=== PATIENT | female | born 1965 | race Caucasian/White ===

== ENCOUNTER 2017-04-01 06:38 | Day surgery (SDC) | payer BC ==
[2017-04-01] MEDS ORDERED: Lactated Ringers 1,000 ML IV SCH (06:45)
[2017-04-01] MEDS ORDERED: Propofol 200 MG/20 ML SDV ONE (07:07)
[2017-04-01] MEDS ORDERED: fentaNYL 100 MCG/2 ML SDV ONE (07:08)
[2017-04-01] MEDS ORDERED: Midazolam 1 MG/ML 2 ML SDV ONE (07:08)
--- NOTE | 2017-04-01 14:42 | OR ---
DATE OF PROCEDURE: 04/01/2017 PREOPERATIVE DIAGNOSIS: Colon cancer screening. POSTOPERATIVE DIAGNOSIS: Unremarkable colonoscopy. PROCEDURE: Colonoscopy to the cecum. SURGEON: Juan Rodgers MD. ANESTHESIA: IV anesthesia with monitored anesthesia care. INDICATION: This 51-year-old white female is referred for a colonoscopy for colon cancer screening. She has never had a colonoscopic exam. I counseled her for the procedure including the risks and alternatives, and she gave her informed consent to proceed. DESCRIPTION OF PROCEDURE: The patient was placed in the left lateral decubitus position. IV anesthesia was administered by the Anesthesia Service. Time-out was held. A rectal exam was performed, which was unremarkable. The flexible video Olympus colonoscope was introduced through her anus, up her rectum, and out her colon all the way to the cecum. Once the cecum was reached, the scope was slowly withdrawn, examining the mucosa throughout. No mucosal abnormalities were noted. The scope was retroflexed in the rectum with the distal rectum appearing unremarkable. The scope was straightened and removed. She tolerated the procedure well. Juan Rodgers MD /[id number] MTDD
== END 2017-04-01 09:25 | disposition home or self-care (01) ==
LOC: JP.SDS 06:38
PROVIDERS: ATTEND Surgery
DX: Z12.11 Encounter for screening for malignant neoplasm of colon (principal); D68.51 Activated protein C resistance; E78.00 Pure hypercholesterolemia, unspecified; Z79.01 Long term (current) use of anticoagulants; Z79.899 Other long term (current) drug therapy
CPT/HCPCS: 45378; J2250; J2704; J3010; J7120

== ENCOUNTER 2019-06-28 16:38 | Emergency (ER) | payer OTHER ==
--- NOTE | 2019-06-28 17:20 | EDM.PDOC ---
ED HPI GENERAL MEDICAL PROBLEM - General Chief Complaint: General Stated Complaint: FEVER, HEADACHE, BODY ACHES Time Seen by Provider: 06/28/19 17:14 Source of Information: Reports: Patient History Limitations: Reports: No Limitations - History of Present Illness INITIAL COMMENTS - FREE TEXT/NARRATIVE: 53 years old female patient presented with a chief complaint of congested cough , nasal congestion and sinus pressure, chills started last night. Feeling hot and cold. Did not check her temperature. Denies any chest pain or shortness breath. Also complaining of generalized body aches and headache. Denies any abdominal pain diarrhea or constipation. Denies any urinary symptom. Recently traveled to [place]. She is not aware of any sick contact. 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 - Related Data Allergies Allergy/AdvReac Type Severity Reaction Status Date / Time No Known Allergies Allergy Verified 06/28/19 16:52 Home Meds: Home Meds FLUoxetine HCl [Prozac] 20 mg PO DAILY 04/01/17 [History] Gabapentin [Gralise] 300 mg PO DAILY 04/01/17 [History] Omeprazole 20 mg PO DAILY 04/01/17 [History] Warfarin Sodium [Coumadin] 7.5 mg PO . T-TH 04/01/17 [History] Warfarin Sodium [Coumadin] 10 mg PO .---SA-04/01/17 [History] Past Medical History HEENT History: Reports: Impaired Vision [employer] DELIVERY History: Reports: Musculoskeletal History: Reports: Back Pain, Chronic, Neck Pain, Chronic Neurological History: Reports: Vertigo Psychiatric History: Reports: Depression Hematologic History: Reports: Bleeding Disorder, Other (See Below) Other Hematologic History: factor 5 on lovenox - Infectious Disease History Infectious Disease History: Reports: Chicken Pox - Past Surgical History HEENT Surgical History: Reports: Oral Surgery Neurological Surgical History: Reports: None Musculoskeletal Surgical History: Reports: Other (See Below) Other Musculoskeletal Surgeries/Procedures:: cyst removed form right knee Social & Family History - Tobacco Use Smoking Status *Q: Never Smoker - Caffeine Use Caffeine Use: Reports: Coffee ED ROS GENERAL - Review of Systems Review Of Systems: Comprehensive ROS is negative, except as noted in HPI. ED EXAM, GENERAL - Physical Exam Exam: See Below Exam Limited By: No Limitations General Appearance: Alert, WD/WN, No Apparent Distress Nose: Other (Nasal congestion.) Throat/Mouth: Normal Inspection, Normal Lips, Normal Teeth, Normal Gums, Normal Oropharynx, Normal Voice, No Airway Compromise Head: Atraumatic, Normocephalic Neck: Normal Inspection, Supple, Non-Tender, Full Range of Motion Respiratory/Chest: No Respiratory Distress, Normal Breath Sounds, No Accessory Muscle Use, Chest Non-Tender, Crackles, Other ( crackles of the left lower lung) . No: Respiratory Distress, Rales, Rhonchi, Wheezing Cardiovascular: Normal Peripheral Pulses, Regular Rate, Rhythm, No Edema, No Gallop, No JVD, No Murmur, No Rub GI/Abdominal: Normal Bowel Sounds, Soft, Non-Tender, No Organomegaly, No Distention, No Abnormal Bruit, No Mass Extremities: Normal Inspection, Normal Range of Motion, Non-Tender, Normal Capillary Refill, No Pedal Edema Neurological: Alert, Oriented, CN II-XII Intact, Normal Cognition, Normal Gait, Normal Reflexes, No Motor/Sensory Deficits Course - Vital Signs Last Recorded V/S: Last Vital Signs Temp 37.4 C 06/28/19 16:53 Pulse 86 06/28/19 18:50 Resp 20 06/28/19 18:50 BP 151/80 H 06/28/19 18:50 Pulse Ox 95 06/28/19 18:50 - Orders/Labs/Meds Orders: Active Orders 24 hr Category Date Time Status CULTURE BLOOD [BC] Urgent Lab 06/28/19 17:30 Received CULTURE BLOOD [BC] Urgent Lab 06/28/19 17:35 Received CULTURE STREP A CONFIRMATION [] Stat Lab 06/28/19 17:28 Results PROCALCITONIN [CHEM] Stat Lab 06/28/19 18:54 Ordered STREP SCRN A RAPID W CULT CONF [RM] Stat Lab 06/28/19 17:28 Results Azithromycin [Zithromax] 500 mg Med 06/28/19 18:56 Ordered Sodium Chloride 0.9% [Normal Saline] 250 ml IV ONETIME cefTRIAXone [Rocephin] 2 gm Med 06/28/19 18:54 Ordered Sodium Chloride 0.9% [Normal Saline] 50 ml IV ONETIME Blood Culture x2 Reflex Set [OM.PC] Urgent Oth 06/28/19 17:24 Ordered Medication Orders Azithromycin 500 mg/ Sodium (Chloride) 250 mls @ 250 mls/hr IV ONETIME ONE Stop: 06/28/19 19:55 Ceftriaxone Sodium 2 gm/ (Sodium Chloride) 50 mls @ 100 mls/hr IV ONETIME ONE Stop: 06/28/19 19:23 Labs: Laboratory Tests 06/28/19 06/28/19 06/28/19 Range/Units 17:42 17:42 17:42 WBC 6.0 (4.5-11.0) K/uL RBC 4.84 (3.30-5.50) M/uL Hgb 12.8 (12.0-15.0) g/dL Hct 41.9 (36.0-48.0) % MCV 87 (80-98) fL MCH 26 L (27-31) pg MCHC 31 L (32-36) % Plt Count 259 (150-400) K/uL Neut % (Auto) 83 H (36-66) % Lymph % (Auto) 6 L (24-44) % [place] % (Auto) 11 H (2-6) % Eos % (Auto) 0 L (2-4) % Baso % (Auto) 0 (0-1) % PT (9.5-12.0) sec INR (0.80-1.20) Sodium 136 L (140-148) mmol/L Potassium 4.0 (3.6-5.2) mmol/L Chloride 100 (100-108) mmol/L Carbon Dioxide 26 (21-32) mmol/L Anion Gap 14.0 (5.0-14.0) mmol/L BUN 6 L (7-18) mg/dL Creatinine 0.8 (0.6-1.0) mg/dL Est Cr Clr Drug Dosing 85.97 mL/min Estimated GFR (MDRD) > 60 (>60) Glucose 94 (74-106) mg/dL Lactic Acid 1.2 (0.4-2.0) mmol/L Calcium 8.1 L (8.5-10.1) mg/dL Total Bilirubin 0.5 (0.2-1.0) mg/dL AST 20 (15-37) U/L ALT 28 (12-78) U/L Alkaline Phosphatase 92 (46-116) U/L C-Reactive Protein 5.36 H (0.0-0.3) mg/dL Total Protein 7.4 (6.4-8.2) g/dL Albumin 3.1 L (3.4-5.0) g/dL Globulin 4.3 H (2.3-3.5) g/dL Albumin/Globulin Ratio 0.7 L (1.2-2.2) 06/28/19 Range/Units 17:42 WBC (4.5-11.0) K/uL RBC (3.30-5.50) M/uL Hgb (12.0-15.0) g/dL Hct (36.0-48.0) % MCV (80-98) fL MCH (27-31) pg MCHC (32-36) % Plt Count (150-400) K/uL Neut % (Auto) (36-66) % Lymph % (Auto) (24-44) % [place] % (Auto) (2-6) % Eos % (Auto) (2-4) % Baso % (Auto) (0-1) % PT 19.1 H (9.5-12.0) sec INR 1.83 H (0.80-1.20) Sodium (140-148) mmol/L Potassium (3.6-5.2) mmol/L Chloride (100-108) mmol/L Carbon Dioxide (21-32) mmol/L Anion Gap (5.0-14.0) mmol/L BUN (7-18) mg/dL Creatinine (0.6-1.0) mg/dL Est Cr Clr Drug Dosing mL/min Estimated GFR (MDRD) (>60) Glucose (74-106) mg/dL Lactic Acid (0.4-2.0) mmol/L Calcium (8.5-10.1) mg/dL Total Bilirubin (0.2-1.0) mg/dL AST (15-37) U/L ALT (12-78) U/L Alkaline Phosphatase (46-116) U/L C-Reactive Protein (0.0-0.3) mg/dL Total Protein (6.4-8.2) g/dL Albumin (3.4-5.0) g/dL Globulin (2.3-3.5) g/dL Albumin/Globulin Ratio (1.2-2.2) Meds: Medications Generic Name Dose Route Start Last Admin Trade Name Freq PRN Reason Stop Dose Admin Azithromycin 500 mg/ Sodium 250 mls @ 250 mls/hr 06/28/19 18:56 Chloride IV 06/28/19 19:55 ONETIME ONE Ceftriaxone Sodium 2 gm/ 50 mls @ 100 mls/hr 06/28/19 18:54 Sodium Chloride IV 06/28/19 19:23 ONETIME ONE Discontinued Medications Generic Name Dose Route Start Last Admin Trade Name Freq PRN Reason Stop Dose Admin Acetaminophen 1,000 mg 06/28/19 17:34 06/28/19 18:00 Tylenol Extra Strength PO 06/28/19 17:35 1,000 mg ONETIME ONE Administration Sodium Chloride 1,000 mls @ 999 mls/hr 06/28/19 17:27 06/28/19 17:45 Normal Saline IV 06/28/19 18:27 999 mls/hr .BOLUS STA Administration - Re-Assessments/Exams Free Text/Narrative Re-Assessment/Exam: 06/28/19 17:23 Patient was seen and examined shortly after arrival. Stable. Given 1 L normal saline bolus, 1 g oral Tylenol. Lab and imaging reviewed with the patient. Normal white count, normal lactic acid. No significant acute abnormalities except for elevated CRP. Radiology report for Chest x-ray did not show any acute infiltrate or acute cardiopulmonary process. Tachycardia resolved. Not hypoxic satting 95% on room air. She is feeling better after hydration and Tylenol. This is most likely viral upper respiratory illness/influenza-like illness. Clinical suspicion about elderly developing pneumonia given her congestive cough, mild shortness breath, O2 sat 91% on presentation, slightly tachycardic on presentation that has resolved, elevated CRP, chest x-ray suspicious for left lower infiltrate. I did order to treat her for pneumonia. Calcitonin has been sent and blood culture. Given 2 g IV Rocephin and 500 mg IV azithromycin. Both will affect her INR which is subtherapeutic today. Advised to follow-up tomorrow with her primary doctor for re evaluation and advised to recheck her INR tomorrow and close monitoring. Given prescription for 4 more days of azithromycin. Advised to Rest and stay well-hydrated Tylenol for discomfort or fever Follow-up with your primary doctor tomorrow for reevaluation Close monitoring of your INR because the antibiotic will increase your INR. Repeat tomorrow Come back for any concern or any worsening symptom Patient agrees with the plan. Stable for discharge. 06/28/19 19:01 Departure - Departure Time of Disposition: 19:07 Disposition: Home, Self-Care 01 Condition: Good, Fair Clinical Impression: Influenza-like illness, Pneumonia - Discharge Information *PRESCRIPTION DRUG MONITORING PROGRAM REVIEWED*: Not Applicable *COPY OF PRESCRIPTION DRUG MONITORING REPORT IN PATIENT RENE: Not Applicable Instructions: Community-Acquired Pneumonia, Adult, Influenza, Adult Referrals: PCP,None [Primary Care Provider] - Forms: ED Department Discharge Additional Instructions: Rest and stay well-hydrated Tylenol for discomfort or fever Follow-up with your primary doctor tomorrow for reevaluation Close monitoring of your INR because the antibiotic will increase your INR. Repeat tomorrow Come back for any concern or any worsening symptom Sepsis Event Note - Evaluation Sepsis Screening Result: No Definite Risk - Focused Exam Vital Signs: Vital Signs Temp Pulse Resp BP Pulse Ox 06/28/19 18:50 86 20 151/80 H 95 06/28/19 16:53 37.4 C 102 H 18 184/90 H 91 L 06/28/19 16:48 37.4 C 102 H 18 184/90 H 91 L Date Exam was Performed: 06/28/19 Time Exam was Performed: 18:57 - My Orders Last 24 Hours: My Active Orders 06/28/19 17:24 Blood Culture x2 Reflex Set [OM.PC] Urgent 06/28/19 17:28 CULTURE STREP A CONFIRMATION [RM] Stat STREP SCRN A RAPID W CULT CONF [RM] Stat 06/28/19 17:30 CULTURE BLOOD [BC] Urgent 06/28/19 17:35 CULTURE BLOOD [BC] Urgent 06/28/19 18:54 PROCALCITONIN [CHEM] Stat cefTRIAXone [Rocephin] 2 gm Sodium Chloride 0.9% [Normal Saline] 50 ml IV ONETIME 06/28/19 18:56 Azithromycin [Zithromax] 500 mg Sodium Chloride 0.9% [Normal Saline] 250 ml IV ONETIME - Assessment/Plan Last 24 Hours: My Active Orders 06/28/19 17:24 Blood Culture x2 Reflex Set [OM.PC] Urgent 06/28/19 17:28 CULTURE STREP A CONFIRMATION [RM] Stat STREP SCRN A RAPID W CULT CONF [RM] Stat 06/28/19 17:30 CULTURE BLOOD [BC] Urgent 06/28/19 17:35 CULTURE BLOOD [BC] Urgent 06/28/19 18:54 PROCALCITONIN [CHEM] Stat cefTRIAXone [Rocephin] 2 gm Sodium Chloride 0.9% [Normal Saline] 50 ml IV ONETIME 06/28/19 18:56 Azithromycin [Zithromax] 500 mg Sodium Chloride 0.9% [Normal Saline] 250 ml IV ONETIME Plan: Rest and stay well-hydrated Tylenol for discomfort or fever Follow-up with your primary doctor tomorrow for reevaluation Close monitoring of your INR because the antibiotic will increase your INR. Repeat tomorrow Come back for any concern or any worsening symptom
[2019-06-28] MEDS ORDERED: Sodium Chloride 0.9% 1,000 ML IV STA (17:27)
[2019-06-28] MEDS ORDERED: Acetaminophen 500 MG Tab PO ONE (17:34)
--- NOTE | 2019-06-28 18:36 | CRLCR ---
INDICATIONS: Cough and fever. TECHNIQUE: Chest 2 view. COMPARISON: None FINDINGS: No pneumothorax, pleural effusion or airspace consolidation. Cardiac and mediastinal contours are within normal limits. Upper abdomen and osseous structures as imaged show no acute abnormality. IMPRESSION: No evidence of acute cardiopulmonary disease. Dictated by Soy Jones MD @ 06/28/2019 6:36:04 PM Dictated by: Soy Jones MD @ 06/28/2019 18:36:09 (Electronically Signed)
[2019-06-28] MEDS ORDERED: cefTRIAXone 2 GM in Sodium Chloride 0.9% 50 ML IV ONE (18:54)
[2019-06-28] MEDS ORDERED: Azithromycin 500 MG in Sodium Chloride 0.9% 250 ML IV ONE (18:56)
== END 2019-06-28 20:46 | disposition home or self-care (01) ==
LOC: JP.ED 16:38
DX: J11.00 Influenza due to unidentified influenza virus with unspecified type of pneumonia (principal); F32.9 Major depressive disorder, single episode, unspecified; Z79.899 Other long term (current) drug therapy; Z79.01 Long term (current) use of anticoagulants
CPT/HCPCS: 36415; 71046; 80053; 83605; 84145; 85025; 85610; 86140; 87040; 87081; 87804; 87880; 96361; 96365; 96367; 99284; A9270; J0456; J0696; J7030; J7050